=== PATIENT | male | born 1985 | race Caucasian/White ===

== ENCOUNTER 2022-05-20 18:26 | Emergency (ER) | payer BC, SELFPAY ==
[2022-05-20 18:29] VITALS: BP 153/96; PULSE 115; RESP 18; TEMP 36.7; O2SAT 98
--- NOTE | 2022-05-20 19:16 | ED.URI ---
HPI - URI/Sore Throat General Chief Complaint: Upper Respiratory Infection Stated Complaint: Sore throat Time Seen by Provider: 05/20/22 19:01 History of Present Illness HPI Narrative: Patient is a 37-year-old male with a history of diabetes presenting with sore throat. Patient states that his and child have had a respiratory infection for the last week. States that about 2 days ago he woke up with a very sore throat that has continued to worsen. States he has been unable to eat anything because of the pain. He denies difficulty breathing. Reports subjective fevers. Denies headaches, chest pain, palpitations, lightheadedness, abdominal pain, nausea or vomiting, diarrhea, leg swelling. Related Data Allergies Allergy/AdvReac Type Severity Reaction Status Date / Time No Known Drug Allergies Allergy Unknown Verified 04/29/14 15:46 Review of Systems Review of Systems: All systems reviewed & are unremarkable except as noted in HPI and below Exam Narrative: GENERAL: Well-appearing, well-nourished, and in no acute distress. HEAD: Normocephalic, atraumatic. EYES: PERRLA and EOMI. ENT: Nares clear, no rhinorrhea or epistaxis. Mucous membranes moist. Posterior pharynx with erythema and exudate NECK: Supple. CHEST: Clear to auscultation. No respiratory distress. HEART: Regular rate and rhythm. No murmur heard. Normal peripheral pulses. ABDOMEN: Soft, nontender, nondistended, normal active bowel sounds. EXTREMITIES: Normal range of motion. No edema. SKIN: Warm, dry, no rash. NEURO: No focal deficits. Alert and oriented x3. PSYCH: Normal mood and affect. Course Vital Signs Vital signs: Vital Signs Temperature 98.1 F 05/20/22 18:29 Pulse Rate 115 H 05/20/22 18:29 Respiratory Rate 18 05/20/22 18:29 Blood Pressure 153/96 H 05/20/22 18:29 Pulse Oximetry 98 05/20/22 18:29 Oxygen Delivery Room Air 05/20/22 18:29 Temperature 98.1 F 05/20/22 18:29 Pulse Rate 115 H 05/20/22 18:29 Respiratory Rate 18 05/20/22 18:29 Blood Pressure 153/96 H 05/20/22 18:29 Pulse Oximetry 98 05/20/22 18:29 Oxygen Delivery Room Air 05/20/22 18:29 MDM - URI/Sore Throat MDM Narrative Medical decision making narrative: Patient is a 37-year-old male presenting with sore throat. Patient is hypertensive and slightly tachycardic. Saturating well on room air. Exam is remarkable for the above. Patient has a leukocytosis. Patient is positive for strep. Patient was given a dose of Decadron as well as some fluids and Toradol. We will send him home with amoxicillin. Advised PCP follow-up. Appropriate return precautions given. Patient discharged in stable condition. Lab Data Result diagrams: 05/20/22 20:00 05/20/22 20:00 Labs: Lab Results 05/20/22 05/20/22 05/20/22 Range/Units 20:00 20:00 20:00 WBC 14.3 H (4.5-10.0) K/mm3 RBC 6.07 (4.6-6.20) M/mm3 Hgb 17.5 (14.0-18.0) g/dL Hct 51.4 (42.0-52.0) % MCV 84.7 (80-100) fl MCH 28.8 (26-34) pg MCHC 34.0 (32-36) g/dl RDW 12.4 (11.5-14.5) % Plt Count 231 (150-375) k/mm3 MPV 9.5 (7.4-10.4) fl Immature Gran % (Auto) 0.5 (0-0.5) % Neut % (Auto) 70.6 (45.5-73.1) % Lymph % (Auto) 15.2 L (18.3-44.2) % [place] % (Auto) 12.0 H (2.6-8.5) % Eos % (Auto) 1.2 (0-4.4) % Baso % (Auto) 0.5 (0.2-1.2) % Lymph # (Auto) 2.17 (0.9-3.2) K/mm3 [place] # (Auto) 1.7 H (0.1-0.6) K/mm3 Eos # (Auto) 0.2 (0-0.3) K/mm3 Baso # (Auto) 0.1 (0.0-0.1) K/mm3 Abs Immat Gran (auto) 0.07 H (0.00-0.031) K/mm3 Absolute Neuts (auto) 10.1 H (1.3-6.7) K/mm3 Absolute Nucleated RBC 0.0 (0.0-0.012) K/mm3 Nucleated RBC % 0.0 (0.0-0.2) % Sodium 135 L (137-145) mmol/L Potassium 4.2 (3.4-5.0) mmol/L Chloride 95 L (98-107) mmol/L Carbon Dioxide 28 (22-30) mmol/L Anion Gap 12 (8-16) mmol/L BUN 12 (9-20) mg/dL Creatinine 0.90 (0.7-
[2022-05-20] MEDS: KETOROLAC 15 MG/ML VIAL (*BKC) IV PUSH (19:58)
[2022-05-20] MEDS: SODIUM CHLORIDE 0.9% IV 1,000 ML 999 ML IV CONT (19:58)
[2022-05-20 20:09] LABS: Basophils Absolute Auto 0.1 K/mm3 (0.0-0.1); Basophils Percent Auto 0.5 % (0.2-1.2); Eosinophils Absolute Auto 0.2 K/mm3 (0-0.3); Eosinophils Percent Auto 1.2 % (0-4.4); Hematocrit 51.4 % (42.0-52.0); Hemoglobin 17.5 g/dL (14.0-18.0); Immature Granulocyte Absolute 0.07 K/mm3 (0.00-0.031); Immature Granulocyte Percent A 0.5 % (0-0.5); Lymphocytes Absolute Auto 2.17 K/mm3 (0.9-3.2); Lymphocytes Percent Auto 15.2 % (18.3-44.2); Mean Corpuscular Hemoglobin 28.8 pg (26-34); Mean Corpuscular Volume 84.7 fl (80-100); Mean Platelet Volume 9.5 fl (7.4-10.4); Monocytes Absolute Auto 1.7 K/mm3 (0.1-0.6); Neutrophils Absolute Auto 10.1 K/mm3 (1.3-6.7); Neutrophils Percent Auto 70.6 % (45.5-73.1); Platelet Count Result 231 k/mm3 (150-375); Red Blood Count 6.07 M/mm3 (4.6-6.20); Red Cell Distribution Width 12.4 % (11.5-14.5); White Blood Count 14.3 K/mm3 (4.5-10.0)
[2022-05-20 20:19] LABS: Alanine Aminotransferase 25 U/L (6-50); Albumin Level 4.7 g/dL (3.5-5.1); Alkaline Phosphatase 99 U/L (38-126); Anion Gap 12 mmol/L (8-16); Aspartate Amino Transferase 21 U/L (17-59); Bilirubin,Total 1.1 mg/dL (0.2-1.3); Blood Urea Nitrogen 12 mg/dL (9-20); Carbon Dioxide 28 mmol/L (22-30); Chloride 95 mmol/L (98-107); Estimated CRCL calculation 122 ml/min; Estimated Glomerular Filt Rate > 60; Glucose 285 mg/dL (65-110); Potassium 4.2 mmol/L (3.4-5.0); Sodium 135 mmol/L (137-145)
[2022-05-20 20:48] LABS: Influenza A QL RT-PCR Negative (Negative); Influenza B QL RT-PCR Negative (Negative); RSV RNA, RT-PCR Negative (Negative); SARS-CoV-2 RNA PCR Negative
[2022-05-20 21:24] LABS: Strep Group A RT-PCR Positive (Negative)
[2022-05-20] MEDS: AMOXICILLIN 500 MG CAPSULE PO (21:51)
== END 2022-05-20 21:56 | disposition home or self-care (01) ==
PROVIDERS: Emergency Provider Emergency Medicine
DX: J02.0 Streptococcal pharyngitis (principal); E11.9 Type 2 diabetes mellitus without complications; Z20.822 Contact with and (suspected) exposure to COVID-19
CPT/HCPCS: 36415; 80053; 85025; 87637; 87651; 96361; 96374; 96375; 99284; A9270; J1100; J1885; J7030

== ENCOUNTER 2022-07-31 18:49 | Emergency (ER) | payer BC, SELFPAY ==
[2022-07-31 18:56] VITALS: PULSE 102; RESP 16; TEMP 36.3; O2SAT 98
[2022-07-31 18:59] VITALS: BP 156/86
--- NOTE | 2022-07-31 19:03 | ED.URI ---
HPI - URI/Sore Throat General Chief Complaint: Upper Respiratory Infection Stated Complaint: sore throat Time Seen by Provider: 07/31/22 19:03 Source: patient and RN notes reviewed History of Present Illness HPI Narrative: patient is a 37-year-old male who presents to urgent care with complaints of a sore throat for the last 2 days. Patient also reports of a low-grade fever, body aches and fatigue. Denies any nausea, vomiting or headache. States he has been taking ibuprofen. Patient did have strep 3 months ago and was on amoxicillin. No other acute complaints. No acute distress noted. Patient aware of the plan of care. Some parts of this dictation were generated by voice recognition software and may contain typographical and/or grammatical inaccuracies. Related Data Home Medications Medication Instructions Recorded Confirmed citalopram 20 mg tablet mg 07/31/22 glimepiride 2 mg tablet mg 07/31/22 metformin 1,000 mg tablet mg 07/31/22 Allergies Allergy/AdvReac Type Severity Reaction Status Date / Time No Known Drug Allergies Allergy Unknown Verified 04/29/14 15:46 Review of Systems Review of Systems: CONSTITUTIONAL: reports of fever and fatigue EYES: Denies visual changes, redness, or discharge. ENT: Denies rhinorrhea, congestion, Otalgia. Reports of sore throat CARDIOVASCULAR: Denies chest pain, palpitations, or edema. RESPIRATORY: Denies cough or dyspnea. GASTROINTESTINAL: Denies abdominal pain, nausea, vomiting, or diarrhea. GENITOURINARY: Denies dysuria or hematuria. SKIN: Denies rash or itching. MUSCULOSKELETAL: Denies back pain, joint pain. Reports body aches NEUROLOGIC: Denies headache, numbness, or weakness. All other systems reviewed are negative, except as documented in HPI. PMFSH Comments At the time of my signature, I reviewed and agree with the nursing past medical, surgical, social, and family history. There is no relevant family history pertinent to the patient complaint. Exam Narrative: GENERAL: This is a well-nourished, well-developed patient, in no apparent distress. HEAD: normocephalic, atraumatic. EYES: PERRL. Sclera clear/white. Vision is grossly intact. EARS: External ears normal, auditory canals clear and without drainage, TMs normal without perforation. Hearing grossly intact. NOSE: External nose normal with no obvious nasal discharge, nares without redness, no rhinorrhea. THROAT: Mucous membranes moist, moderate erythema to posterior oropharynx with mild to moderate bilateral tonsillar edema / erythema with moderate postnasal drainage NECK: Neck supple, non-tender CARDIOVASCULAR: Regular rate and rhythm without murmurs, gallops, or rubs. RESPIRATORY: Clear to auscultation. Breath sounds equal bilaterally. No wheezes, rales, or rhonchi. SKIN: warm, intact with no suspicious lesions or rash, good texture and turgor. NEURO: awake, alert, and oriented to person, place and time. There were no obvious focal neurologic abnormalities. EXTREMITIES: No clubbing, cyanosis, or edema. Course Course Level of Care: Express Care Visit Vital Signs Vital signs: Vital Signs Temperature 97.4 F L 07/31/22 18:56 Pulse Rate 102 H 07/31/22 18:56 Respiratory Rate 16 07/31/22 18:56 Pulse Oximetry 98 07/31/22 18:56 Oxygen Delivery Room Air 07/31/22 18:56 Temperature 97.4 F L 07/31/22 18:56 Pulse Rate 102 H 07/31/22 18:56 Respiratory Rate 16 07/31/22 18:56 Blood Pressure 156/86 H 07/31/22 18:59 Pulse Oximetry 98 07/31/22 18:56 Oxygen Delivery Room Air 07/31/22 18:56 reviewed- Patient is informed that they may have pre-hypertension or hypertension based on a blood pressure reading in the department. I recommend the patient call the primary care provider listed on their discharge instructions or a physician of their choice this week to arrange follow-up for further evaluation of possible pre-hypertension or hypertension. MDM - URI/Sore Throat MDM Narrative
== END 2022-07-31 19:28 | disposition home or self-care (01) ==
PROVIDERS: Emergency Provider Nurse Practitioner Family; PCP Physician Assistant
DX: J02.0 Streptococcal pharyngitis (principal); E11.9 Type 2 diabetes mellitus without complications
CPT/HCPCS: 87880; 99213; G0463

== ENCOUNTER 2022-09-22 14:52 | Emergency (ER) | payer BC, SELFPAY ==
[2022-09-22 14:58] VITALS: BP 136/87; PULSE 92; RESP 16; TEMP 36.6; O2SAT 97
--- NOTE | 2022-09-22 14:58 | ED.URI ---
HPI - URI/Sore Throat General Chief Complaint: Upper Respiratory Infection Stated Complaint: ear nose and throat Source: patient and RN notes reviewed History of Present Illness HPI Narrative: 37 yo M presents to urgent care with complaints of cough x 2 weeks, bilateral ear pressure, sore throat. Pt states he is now getting lightheaded and more tired than usual. Pt states he had strep 1 month ago and 2 weeks ago. Pt denies any SOB, chest pain, N/V/D, ear pain. Related Data Home Medications Medication Instructions Recorded Confirmed citalopram 20 mg tablet 20 mg PO DAILY 07/31/22 09/22/22 glimepiride 2 mg tablet 4 mg PO BID 07/31/22 09/22/22 metformin 1,000 mg tablet 1,000 mg PO BID 07/31/22 09/22/22 dapagliflozin 10 mg tablet 10 mg PO DAILY 09/22/22 09/22/22 (Farxiga) Allergies Allergy/AdvReac Type Severity Reaction Status Date / Time No Known Allergies Allergy Verified 09/22/22 15:03 Review of Systems Review of Systems: Pertinent positives and pertinent negatives per HPI. PMFSH Comments At the time of my signature, I reviewed and agree with the nursing past medical, surgical, social, and family history. There is no relevant family history pertinent to the patient complaint. Exam Narrative: GENERAL: This is a well-nourished, well-developed patient, in no apparent distress. HEAD: normocephalic, atraumatic. EYES: PERRL. Sclera clear/white. Vision is grossly intact. EARS: External ears normal, auditory canals clear and without drainage, TMs normal without perforation. Hearing grossly intact. NOSE: External nose normal with no obvious nasal discharge, nares without redness, no rhinorrhea. THROAT: Mucous membranes moist, posterior pharynx erythremic. Left tonsil 2+, right tonsil 1+. No exudate noted. NECK: Neck supple, non-tender with mild lymphadenopathy. CARDIOVASCULAR: Regular rate and rhythm without murmurs, gallops, or rubs. RESPIRATORY: Clear to auscultation. Breath sounds equal bilaterally. No wheezes, rales, or rhonchi. GASTROINTESTINAL: Abdomen soft, non-tender, nondistended. Bowel sounds are active. No hepato-splenomegaly, or palpable masses. No guarding. SKIN: warm, intact with no suspicious lesions or rash, good texture and turgor. NEURO: awake, alert, and oriented to person, place and time. There were no obvious focal neurologic abnormalities. Course Course Level of Care: Express Care Visit Vital Signs Vital signs: Vital Signs Temperature 98 F 09/22/22 14:58 Pulse Rate 92 09/22/22 14:58 Respiratory Rate 16 09/22/22 14:58 Blood Pressure 136/87 09/22/22 14:58 Pulse Oximetry 97 09/22/22 14:58 Oxygen Delivery Room Air 09/22/22 14:58 Temperature 98 F 09/22/22 14:58 Pulse Rate 92 09/22/22 14:58 Respiratory Rate 16 09/22/22 14:58 Blood Pressure 136/87 09/22/22 14:58 Pulse Oximetry 97 09/22/22 14:58 Oxygen Delivery Room Air 09/22/22 14:58 Reviewed MDM - URI/Sore Throat MDM Narrative Medical decision making narrative: After 24 hours on antibiotics throw tooth brush away and start using a new one. Increase your Vitamin C. Do not share drinks. Take Motrin alternating with Tylenol for pain and/or fever alternating every 4 hours. Increase fluids, avoid caffeine. Take a probiotic daily or eat a low sugar yogurt while taking the antibiotic. Follow up with Primary provider if not getting better this week Pt was treated for strep throat in Jul with Augmentin. Differential Diagnosis Differential diagnosis: Likely upper respiratory infection, viral infection, bronchitis and pharyngitis Lab Data Attestation: I reviewed the patient's lab results. Labs: Strep Screen Positive Group A Strep *(Reference Range: Negative)* Critical Care Time Critical Care Time Critical Care Time: No Discharge Plan Discharge Clinical Impression: Pharyngitis Qualifiers: Pharyngitis/tonsillitis etiology: strepto
== END 2022-09-22 16:00 | disposition home or self-care (01) ==
PROVIDERS: Emergency Provider Nurse Practitioner Family; PCP Physician Assistant
DX: J02.0 Streptococcal pharyngitis (principal); E11.9 Type 2 diabetes mellitus without complications
CPT/HCPCS: 87880; 99213; G0463

== ENCOUNTER 2022-10-09 00:50 | Emergency (ER) | payer BC, SELFPAY ==
[2022-10-09 00:53] VITALS: BP 169/90; PULSE 98; RESP 16; TEMP 36.6; O2SAT 98
--- NOTE | 2022-10-09 01:17 | ED.GENADULT ---
HPI - General Adult General Chief complaint: Back Pain/Injury Stated complaint: right shoulder and neck pain Time Seen by Provider: 10/09/22 01:08 History of Present Illness HPI narrative: This is a 37-year-old male presenting ED with a chief complaint of neck and shoulder pain. Patient has says the pain has been going on for the last 4-5 days. He describes as a dull/burning pain that goes from his upper back/lower neck into his shoulder, specifically along his triceps to his elbow. It is constant, there are no alleviating / exacerbating factors. He did take cyclobenzaprine 5 hours ago with minimal relief. Related Data Home Medications Medication Instructions Recorded Confirmed citalopram 20 mg tablet 20 mg PO DAILY 07/31/22 09/22/22 glimepiride 2 mg tablet 4 mg PO BID 07/31/22 09/22/22 metformin 1,000 mg tablet 1,000 mg PO BID 07/31/22 09/22/22 dapagliflozin 10 mg tablet 10 mg PO DAILY 09/22/22 09/22/22 ([facility]) Allergies Allergy/AdvReac Type Severity Reaction Status Date / Time No Known Allergies Allergy Verified 10/09/22 00:51 [facility] Past Medical History Medical History Diabetes H/O appendicitis Exam Narrative: APPEARANCE: No apparent distress. Head: atraumatic. EYES: EOMI, NOSE: Atraumatic NECK: Trachea midline RESPIRATORY: No increased rate of breathing CARDIOVASCULAR: RRR, ABDOMINAL: Non-distended MUSCULOSKELETAl: No obvious deformities , strength and range of motion intact and shoulder elbow and hand. Tenderness palpation over the right trapezius. Multiple circular bruises from suction treatment. NEURO: Alert. Focal exam of right upper extremity revealed no areas of loss of sensation, radial ulnar and median nerve motor strength is intact. SKIN:: Warm, dry. Normal color PSYCHIATRIC: Normal affect Course Vital Signs Vital signs: Vital Signs Temperature 97.9 F 10/09/22 00:53 Pulse Rate 98 10/09/22 00:53 Respiratory Rate 16 10/09/22 00:53 Blood Pressure 169/90 H 10/09/22 00:53 Pulse Oximetry 98 10/09/22 00:53 Oxygen Delivery Room Air 10/09/22 00:53 Temperature 97.9 F 10/09/22 00:53 Pulse Rate 98 10/09/22 00:53 Respiratory Rate 16 10/09/22 00:53 Blood Pressure 169/90 H 10/09/22 00:53 Pulse Oximetry 98 10/09/22 00:53 Oxygen Delivery Room Air 10/09/22 00:53 Medical Decision Making MDM Narrative Medical decision making narrative: -Presentation: 37-year-old male presenting with pain in his neck radiating to his shoulder/arm. no neurologic doses. -DDX includes but is not limited to: muscle strain, cervical radiculopathy, peripheral neuropathy -Co-morbidities complicating care: diabetes -Social determinants of health: patient works as a teacher, lives with his Nancy -External Chart Review: previous ER visits -Hx from independent Sources: -Nancy -Discussion of Management/Consultants: none -Independent interpretation of studies: none Dx tests considered but not ordered: none -Procedures: none -Interventions: lidocaine patch, Toradol, Tylenol, methocarbamol -Shared decision making / Disposition: patient will be discharged with primary care follow up. -RX: Motrin, Tylenol, methocarbamol Vital Signs Vital Signs: Vital Signs Temperature 97.9 F 10/09/22 00:53 Pulse Rate 98 10/09/22 00:53 Respiratory Rate 16 10/09/22 00:53 Blood Pressure 169/90 H 10/09/22 00:53 Pulse Oximetry 98 10/09/22 00:53 Oxygen Delivery Room Air 10/09/22 00:53 Temperature 97.9 F 10/09/22 00:53 Pulse Rate 98 10/09/22 00:53 Respiratory Rate 16 10/09/22 00:53 Blood Pressure 169/90 H 10/09/22 00:53 Pulse Oximetry 98 10/09/22 00:53 Oxygen Delivery Room Air 10/09/22 00:53 Discharge Plan Discharge Clinical Impression: Cervical radiculopathy at C8 Patient Disposition: Home, Self-Care Condition: Stable Instructions: Antibiotic
[2022-10-09] MEDS: KETOROLAC 30 MG/ML VIAL (*BKC) IM (01:20)
[2022-10-09] MEDS: ACETAMINOPHEN 500 MG TABLET 1000 MG PO (01:21)
[2022-10-09] MEDS: methocarbamoL 750 MG TABLET 1500 MG PO (01:22)
[2022-10-09] MEDS: LIDOCAINE 5% PATCH 1 PATCH TRANSDERM (01:23)
== END 2022-10-09 01:51 | disposition home or self-care (01) ==
PROVIDERS: Emergency Provider Emergency Medicine; PCP Physician Assistant
DX: M54.12 Radiculopathy, cervical region (principal); E11.9 Type 2 diabetes mellitus without complications; Z79.84 Long term (current) use of oral hypoglycemic drugs
CPT/HCPCS: 96372; 99283; A9270; J1885